=== PATIENT | male | born 1950 | race Caucasian/White ===

== ENCOUNTER 2019-09-05 09:45 | Day surgery (SDC) | payer BC ==
[~2019-09-05] VITALS: Ht 177.8 cm; Wt 111.1 kg
[~2019-09-05 09:45] MED LIST: FINA5TAB2 PO; LISI-538 PO; MULTCAP PO; NS 1,000 ML IV ONE; TAMS1CAP17 PO
[2019-09-05] MEDS ORDERED: PROPOFOL 200 MG/20 ML VIAL As Ordered ONE ×2 (10:05→12:16)
[2019-09-05] MEDS ORDERED: LIDOCAINE 2% INJ 100 MG/5 ML SDV (FOR ANES.) As Ordered ONE (10:05)
--- NOTE | 2019-09-05 12:19 | ROOR ---
Patient Name: Efren Reyes Procedure Date: 09/05/2019 11:50 AM Date of : 1950 Age: 69 Room: [facility] Gender: Male Note Status: Finalized Procedure: Total Colonoscopy to Cecum + Biopsy Polypectomy Indications: High risk colon cancer surveillance: Personal history of colonic polyps, Last colonoscopy: 2014 Providers: Ben Felix MD Referring MD: Jennifer Clayton DO Requesting Provider: Medicines: Monitored Anesthesia Care Complications: No immediate complications. Procedure: Pre-Anesthesia Assessment: - The heart rate, respiratory rate, oxygen saturations, blood pressure, adequacy of pulmonary ventilation, and response to care were monitored throughout the procedure. The Colonoscope was introduced through the anus and advanced to the cecum, identified by appendiceal orifice and ileocecal valve. The colonoscopy was performed without difficulty. The patient tolerated the procedure well. The quality of the bowel preparation was excellent. Findings: The perianal and digital rectal examinations were normal. Non-bleeding internal hemorrhoids were found during retroflexion. The hemorrhoids were small and Grade I (internal hemorrhoids that do not prolapse). Multiple small and large-mouthed diverticula were found in the recto-sigmoid colon, sigmoid colon and descending colon. A diminutive polyp was found in the mid ascending colon. The polyp was sessile. The polyp was removed with a jumbo cold forceps. Resection and retrieval were complete. The exam was otherwise without abnormality on direct and retroflexion views. Impression: - Non-bleeding internal hemorrhoids. - Diverticulosis in the recto-sigmoid colon, in the sigmoid colon and in the descending colon. - One diminutive polyp in the mid ascending colon, removed with a jumbo cold forceps. Resected and retrieved. - The examination was otherwise normal on direct and retroflexion views. - The exam was otherwise normal to the cecum. Recommendation: - Patient has a contact number available for emergencies. The signs and symptoms of potential delayed complications were discussed with the patient. Return to normal activities tomorrow. Written discharge instructions were provided to the patient. - High fiber diet. - Discharge patient to home. - Continue present medications. - Await pathology results. - Telephone GI clinic for pathology results in 1 week. - Return to referring physician. - Repeat colonoscopy in 5 years for surveillance. - The findings and recommendations were discussed with the patient's family. Ben Felix MD Ben Felix MD 09/05/2019 12:19:22 PM Electronically signed by Ben Felix MD Number of Addenda: 0 Note Initiated On: 09/05/2019 11:50 AM Estimated Blood Loss: Estimated blood loss: none.
[2019-09-05 12:35] VITALS: BP 105/76
== END 2019-09-05 12:48 | disposition home or self-care (01) ==
LOC: M OPP 09:45
PROVIDERS: ATTEND Internal Medicine Gastroenterology
DX: Z12.11 Encounter for screening for malignant neoplasm of colon (principal); Z86.010 Personal history of colon polyps; Z80.0 Family history of malignant neoplasm of digestive organs; K64.0 First degree hemorrhoids; D12.2 Benign neoplasm of ascending colon; K57.30 Diverticulosis of large intestine without perforation or abscess without bleeding; Z79.899 Other long term (current) drug therapy; Z87.891 Personal history of nicotine dependence

== ENCOUNTER 2024-08-15 12:11 | Day surgery (SDC) | payer MEDICARE ==
[~2024-08-15] VITALS: Ht 177.8 cm; Wt 110.7 kg
[~2024-08-15 12:11] MED LIST changes: -LISI-538 PO; +LISI10TA22 PO; +LISI20TA33 PO; +THERTAB52 PO
[2024-08-15] MEDS ORDERED: propofoL 200 MG/20 ML VIAL As Ordered ONE (12:45)
[2024-08-15] MEDS ORDERED: LIDOCAINE 2% 100MG/5ML SDV (FOR ANES.) As Ordered ONE (12:45)
[2024-08-15 14:30] VITALS: BP 130/79; O2SAT 95
== END 2024-08-15 14:30 | disposition home or self-care (01) ==
LOC: M OPP 12:11
PROVIDERS: ATTEND Internal Medicine Gastroenterology
DX: Z12.11 Encounter for screening for malignant neoplasm of colon (principal); K64.0 First degree hemorrhoids; Z80.0 Family history of malignant neoplasm of digestive organs; K57.30 Diverticulosis of large intestine without perforation or abscess without bleeding; I10 Essential (primary) hypertension; Z86.718 Personal history of other venous thrombosis and embolism; R06.83 Snoring; N42.9 Disorder of prostate, unspecified; Z79.899 Other long term (current) drug therapy